=== PATIENT | female | born 1995 | race Caucasian/White ===

== ENCOUNTER 2018-05-18 00:23 | Emergency (ER) | payer OTHER ==
[2018-05-18 00:59] VITALS: BP 122/82; PULSE 82; TEMP 97.5; BMI 34.1
[2018-05-18 01:10] LABS: BASO % 0.2 % (0-2.0); EOS % 0.3 % (0-4.5); HEMATOCRIT 39.4 % (32.4-45.2); HEMOGLOBIN 13.6 GM/dL (10.7-15.3); LYMPH % 17.2 % (8-40); MCH 29.9 pg (25.7-33.7); MCHC 34.5 g/dl (32.0-36.0); MEAN CELL VOLUME 86.8 fl (80-96); MEAN PLT VOLUME 7.4 fl (7.5-11.1); MONO % 5.1 % (3.8-10.2); NEUT % 77.2 % (42.8-82.8); PLATELET COUNT 291 K/MM3 (134-434); RBC 4.54 M/mm3 (3.60-5.2); RDW 12.7 % (11.6-15.6); WHITE BLOOD COUNT 10.9 K/mm3 (4.0-10.0)
[2018-05-18] MEDS ORDERED: SODIUM CHLORIDE 1,000 ML IV STA (01:17)
[2018-05-18] MEDS ORDERED: METOCLOPRAMIDE HCL INJECTION 10 MG/2 ML VIAL IVPB ONE (01:18)
--- NOTE | 2018-05-18 01:21 | PDOC ---
History of Present Illness - General Chief Complaint: Headache Stated Complaint: HEADACHE Time Seen by Provider: 05/18/18 00:35 History Source: Patient Exam Limitations: No Limitations - History of Present Illness Initial Comments: 05/18/18 01:18 Best Contact: PCP: None Pmhx:0 Pshx: cyst to right side of neck @ age 2 Allergies:NKDA FH:0 Social Hx: Cigarettes/ 0 Alcohol/ social Drugs/0 LMP:Mar 2018/unk exact date 22-year-old female presents to the ER complaining of 8/10 dull global nonradiating intermittent headache with nausea and vomiting/photophobia, phonophobia 3 weeks without fever, chills, dizziness, lightheadedness, facial pains, earache, nasal congestion, sore throat, neck stiffness/pain, back pains, chest pain, shortness of breath, abdominal pains, flank pains, urinary symptoms , bladder or bowel dysfunction, [place] numbness or tingling sensation. Patient denies alleviating factors but the pain is exacerbated with loud noise and light. History of headaches 3 years ago when a heavy object hit her head. Past History - Past Medical History Allergies/Adverse Reactions: Allergies Allergy/AdvReac Type Severity Reaction Status Date / Time No Known Allergies Allergy Verified 05/18/18 00:42 Home Medications: Ambulatory Orders No Home Medications 0 dose .ROUTE UTDICT 08/14/12 GI Disorders: Yes (GERD) - Immunization History Immunization Up to Date: Yes - Suicide/Smoking/Psychosocial Hx Smoking Status: No Smoking History: Never smoked Have you smoked in the past 12 months: No Number of Cigarettes Smoked Daily: 0 Information on smoking cessation initiated: No Hx Alcohol Use: No Drug/Substance Use Hx: No Review of Systems - Review of Systems Able to Perform ROS?: Yes Comments:: 05/18/18 01:18 CONSTITUTIONAL: Absent: fever, chills, diaphoresis, generalized weakness, malaise, loss of appetite HEENT: Absent: rhinorrhea, nasal congestion, throat pain, throat swelling, difficulty swallowing, mouth swelling, ear pain, eye pain, visual Changes CARDIOVASCULAR: Absent: chest pain, loss of consciousness, palpitations, irregular heart rate, peripheral edema RESPIRATORY: Absent: cough, shortness of breath, dyspnea with exertion, orthopnea, wheezing, stridor, hemoptysis GASTROINTESTINAL: Absent: abdominal pain, abdominal distension, nausea, vomiting, diarrhea, constipation, melena, hematochezia GENITOURINARY: Absent: dysuria, frequency, urgency, hesitancy, hematuria, flank pain, genital pain MUSCULOSKELETAL: Absent: myalgia, arthralgia, joint swelling SKIN: Absent: rash, itching, pallor HEMATOLOGIC/IMMUNOLOGIC: Absent: easy bleeding, easy bruising, lymphadenopathy, frequent infections ENDOCRINE: Absent: unexplained weight gain, unexplained weight loss, heat intolerance, cold intolerance NEUROLOGIC: +global fox Absent: focal weakness or paresthesias, dizziness, unsteady gait, seizure, mental status changes, bladder or bowel incontinence PSYCHIATRIC: Absent: anxiety, depression, suicidal or homicidal ideation, hallucinations. Is the patient limited Kazakh proficient: No *Physical Exam - Vital Signs Last Vital Signs Temp Pulse Resp BP Pulse Ox 97.5 F L 82 18 122/82 98 05/18/18 00:38 05/18/18 00:38 05/18/18 00:38 05/18/18 00:38 05/18/18 00:38 - Physical Exam Comments: 05/18/18 01:18 GENERAL: Well developed, well nourished. Awake and alert. No acute distress. HEENT: Normocephalic, atraumatic. PERRLA, EOMI. No conjunctival pallor. Sclera are non- icteric. Moist mucous membranes. Oropharynx is clear. NECK: Supple. Full ROM. No JVD. Carotid pulses 2+ and symmetric, without bruits. No thyromegaly. No lymphadenopathy. CARDIOVASCULAR: Regular rate and rhythm. No murmurs, rubs, or gallops. Distal pulses are 2+ and symmetric. PULMONARY: No evidence of respiratory distress. Lungs clear to auscultation bilaterally. No wheezing, rales or rhonchi. ABDOMINAL: Soft. Non-tender. Non-distended. No rebound or guarding. No organomegaly. Normoactive bowel sounds. MUSCULOSKELETAL Normal range of motion at all joints. No bony deformities or tenderness. No CVA tenderness. EXTREMITIES: No cyanosis. No clubbing. No edema. No calf tenderness. SKIN: Warm and dry. Normal capillary refill. No rashes. No jaundice. NEUROLOGICAL: Alert, awake, appropriate. Cranial nerves 2-12 intact. No deficits to light touch and temperature in face, upper extremities and lower extremities. No motor deficits in the in face, upper extremities and lower extremities. Normoreflexic in the upper and lower extremities. Normal speech. Toes are down- going bilaterally. Gait is normal without ataxia. PSYCHIATRIC: Cooperative. Good eye contact. Appropriate mood and affect. Moderate Sedation - Procedure Monitoring Vital Signs: Procedure Monitoring Vital Signs Temperature 97.5 F L 05/18/18 00:38 Pulse Rate 82 05/18/18 00:38 Respiratory Rate 18 05/18/18 00:38 Blood Pressure 122/82 05/18/18 00:38 O2 Sat by Pulse Oximetry (%) 98 05/18/18 00:38 ED Treatment Course - LABORATORY CBC & Chemistry Diagram: 05/18/18 01:04 05/18/18 01:04 - RADIOLOGY Radiograph Interpretation: 05/18/18 03:22 Ct scan head: neg *DC/Admit/Observation/Transfer Diagnosis at time of Disposition: Headache Qualifiers: Headache type: other headache syndrome Qualified Code(s): G44.89 - Other headache syndrome - Discharge Dispostion Disposition: HOME Condition at time of disposition: Stable Decision to Admit order: No - Referrals Referrals: Keanu Becker MD [Staff Physician] - - Patient Instructions Printed Discharge Instructions: DI for Headache Additional Instructions: Take tylenol alternating with motrin every 6 hours as needed for pain Increase fluids Follow up with neurology this week Return to the Er for severe/persistent/worsening symptoms - Post Discharge Activity Forms/Work/School Notes: Back to Work
[2018-05-18] MEDS ORDERED: METOCLOPRAMIDE HCL INJECTION 10 MG/2 ML VIAL ONE (01:35)
[2018-05-18 01:38] LABS: ALBUMIN 4.1 g/dl (3.4-5.0); ALK PHOS 104 U/L (45-117); ANION GAP 7 MMOL/L (8-16); BILIRUBIN,TOTAL 0.6 mg/dL (0.2-1); BLOOD UREA NITROGEN 9 mg/dL (7-18); CALCIUM 8.8 mg/dL (8.5-10.1); CHLORIDE 102 mmol/L (98-107); CO2 31 mmol/L (21-32); CREATININE 0.8 mg/dL (0.55-1.3); GLUCOSE,RANDOM 101 mg/dL (74-106); POTASSIUM 3.8 mmol/L (3.5-5.1); SGOT/AST 21 U/L (15-37); SGPT/ALT 48 U/L (13-61); SODIUM 140 mmol/L (136-145); TOT PROT 7.9 g/dl (6.4-8.2)
== END 2018-05-18 04:25 | disposition home or self-care (01) ==
LOC: JER 00:23
PROC: 3E033GC Introduction of Other Therapeutic Substance into Peripheral Vein, Percutaneous Approach (ICD-10-PCS; principal; 2018-05-18)
PROC: 3E033GC Introduction of Other Therapeutic Substance into Peripheral Vein, Percutaneous Approach (ICD-10-PCS; 2018-05-18)
DX: G44.89 Other headache syndrome (principal)
CPT/HCPCS: 36415; 70450-TC; 80053; 84703; 85025; 99281-25; J7030

== ENCOUNTER 2018-05-28 18:18 | Emergency (ER) | payer OTHER ==
[2018-05-28 18:40] VITALS: TEMP 98.5; BMI 26.6
[2018-05-28] MEDS ORDERED: ONDANSETRON 4 MG/2 ML VIAL ONE (18:41)
--- NOTE | 2018-05-28 18:51 | PDOC ---
History of Present Illness - General History Source: Patient, Family Exam Limitations: No Limitations - History of Present Illness Initial Comments: 05/28/18 19:18 The patient is a 22 year old female, with a significant past medical history of GERD, who presents to the emergency department via ems with complaint of frontal headache. Pt is poor historian. Pt is non conversant at this time, however, when asked where her headache is she places her hands on her forehead. As per EMS, the patients brother called ems after finding the patient on the couch crying in pain at about 4PM today. The patients family at bedside report the patient was in good health last night and this morning. The family at bedside also states the patient was feeling happy because she had not had a headache in 2 days. The patient was reportedly seen in the ED 10 days ago for headache and had a negative head CT at that time. Family at bedside reportedly gave Excedrin today but is unsure if the patient took any additional medication. As per ems, BGM in route was 116. The patient denies chest pain, shortness of breath,and dizziness. The patient denies fever, chills, nausea, vomit, diarrhea and constipation. The patient denies dysuria, frequency, urgency and hematuria. <Melva Painter - Last Filed: 05/28/18 19:18> <Libertad Duncan - Last Filed: 05/29/18 01:31> - General Chief Complaint: Altered Mental Status Stated Complaint: ALTERED MENTAL STATUS Time Seen by Provider: 05/28/18 18:50 Past History <Melva Painter - Last Filed: 05/28/18 19:18> - Past Medical History COPD: No GI Disorders: Yes (GERD) - Immunization History Immunization Up to Date: Yes - Suicide/Smoking/Psychosocial Hx Smoking Status: No Smoking History: Unknown if ever smoked Have you smoked in the past 12 months: No Number of Cigarettes Smoked Daily: 0 Information on smoking cessation initiated: No Hx Alcohol Use: No Drug/Substance Use Hx: No <Libertad Duncan - Last Filed: 05/29/18 01:31> - Past Medical History Allergies/Adverse Reactions: Allergies Allergy/AdvReac Type Severity Reaction Status Date / Time No Known Allergies Allergy Verified 05/18/18 00:42 Home Medications: Ambulatory Orders No Home Medications 0 dose .ROUTE UTDICT 08/14/12 Ibuprofen [Motrin -] 800 mg PO TID PRN #21 tablet MDD 3 tabs 05/29/18 Methylprednisolone [Medrol Dose Thomas] 4 mg PO ASDIR #21 tablet 05/29/18 Metoclopramide HCl [Reglan -] 10 mg PO BID PRN #10 tablet MDD 2 tabs 05/29/18 Review of Systems - Review of Systems Able to Perform ROS?: Yes Comments:: 05/28/18 19:19 CONSTITUTIONAL: Absent: fever, chills, diaphoresis, generalized weakness, malaise, loss of appetite HEENT: Absent: rhinorrhea, nasal congestion, throat pain, throat swelling, difficulty swallowing, mouth swelling, ear pain, eye pain, visual Changes CARDIOVASCULAR: Absent: chest pain, syncope, palpitations, irregular heart rate, lightheadedness , peripheral edema RESPIRATORY: Absent: cough, shortness of breath, dyspnea with exertion, orthopnea, wheezing, stridor, hemoptysis GASTROINTESTINAL: Absent: abdominal pain, abdominal distension, nausea, vomiting, diarrhea, constipation, melena, hematochezia GENITOURINARY: Absent: dysuria, frequency, urgency, hesitancy, hematuria, flank pain, genital pain MUSCULOSKELETAL: Absent: myalgia, arthralgia, joint swelling SKIN: Absent: rash, itching, pallor HEMATOLOGIC/IMMUNOLOGIC: Absent: easy bleeding, easy bruising, lymphadenopathy, frequent infections ENDOCRINE: Absent: unexplained weight gain, unexplained weight loss, heat intolerance, cold intolerance NEUROLOGIC: (+) headache, Absent: focal weakness or paresthesias, dizziness, unsteady gait, seizure, mental status changes, bladder or bowel incontinence PSYCHIATRIC: Absent: anxiety, depression, suicidal or homicidal ideation, hallucinations. <Melva Painter - Last Filed: 05/28/18 19:18> *Physical Exam - Vital Signs Last Vital Signs Temp Pulse Resp BP Pulse Ox 98.5 F 51 L 16 119/63 100 05/28/18 18:37 05/28/18 18:37 05/28/18 18:37 05/28/18 18:37 05/28/18 18:37 - Physical Exam Comments: 05/28/18 19:20 GENERAL: (+) Softly moaning. Non Conversant. Intentionally keeping eyes closed. Well developed, well nourished. No acute distress. HEENT: Normocephalic, atraumatic. PERRLA, EOMI. No conjunctival pallor. Sclera are non- icteric. Moist mucous membranes. Oropharynx is clear. NECK: Supple. Full ROM. No JVD. Carotid pulses 2+ and symmetric, without bruits. No thyromegaly. No lymphadenopathy. CARDIOVASCULAR: Regular rate and rhythm. No murmurs, rubs, or gallops. Distal pulses are 2+ and symmetric. PULMONARY: No evidence of respiratory distress. Lungs clear to auscultation bilaterally. No wheezing, rales or rhonchi. ABDOMINAL: Soft. Non-tender. Non-distended. No rebound or guarding. No organomegaly. Normoactive bowel sounds. MUSCULOSKELETAL Normal range of motion at all joints. No bony deformities or tenderness. No CVA tenderness. EXTREMITIES: No cyanosis. No clubbing. No edema. No calf tenderness. SKIN: Warm and dry. Normal capillary refill. No rashes. No jaundice. NEUROLOGICAL: (+) non conversant. Intentionally keeping eyes closed tight. Cranial nerves 2- 12 intact. Normoreflexic in the upper and lower extremities. Toes are down- going bilaterally. Gait unassessed. PSYCHIATRIC: (+) non conversant. Intentionally keeping eyes closed tight. <Melva Painter - Last Filed: 05/28/18 19:18> - Vital Signs Last Vital Signs Temp Pulse Resp BP Pulse Ox 98.5 F 51 L 16 119/63 100 05/28/18 18:37 05/28/18 18:37 05/28/18 18:37 05/28/18 18:37 05/28/18 18:37 <Libertad Duncan - Last Filed: 05/29/18 01:31> Moderate Sedation - Procedure Monitoring Vital Signs: Procedure Monitoring Vital Signs Temperature 98.5 F 05/28/18 18:37 Pulse Rate 51 L 05/28/18 18:37 Respiratory Rate 16 05/28/18 18:37 Blood Pressure 119/63 05/28/18 18:37 O2 Sat by Pulse Oximetry (%) 100 05/28/18 18:37 <Melva Painter - Last Filed: 05/28/18 19:18> - Procedure Monitoring Vital Signs: Procedure Monitoring Vital Signs Temperature 98.5 F 05/28/18 18:37 Pulse Rate 51 L 05/28/18 18:37 Respiratory Rate 16 05/28/18 18:37 Blood Pressure 119/63 05/28/18 18:37 O2 Sat by Pulse Oximetry (%) 100 05/28/18 18:37 <Libertad Duncan - Last Filed: 05/29/18 01:31> ED Treatment Course - LABORATORY CBC & Chemistry Diagram: 05/28/18 20:50 05/28/18 20:50 <Libertad Duncan - Last Filed: 05/29/18 01:31> *DC/Admit/Observation/Transfer - Attestations Scribe Attestion: 05/28/18 19:20 Documentation prepared by Melva Painter, acting as medical information officer for Libertad Duncan MD <Melva Painter - Last Filed: 05/28/18 19:18> <Libertad Duncan - Last Filed: 05/29/18 01:31> Diagnosis at time of Disposition: Headache, chronic daily - Discharge Dispostion Disposition: HOME Condition at time of disposition: Stable - Prescriptions Prescriptions: Ibuprofen [Motrin -] 800 mg PO TID PRN #21 tablet MDD 3 tabs PRN Reason: Headache Methylprednisolone [Medrol Dose Thomas] 4 mg PO ASDIR #21 tablet Metoclopramide HCl [Reglan -] 10 mg PO BID PRN #10 tablet MDD 2 tabs PRN Reason: Headache - Referrals Referrals: Mimi Camarena MD [Primary Care Provider] - Mary Grace Calixto MD [Staff Physician] - - Patient Instructions Printed Discharge Instructions: DI for Migraine Additional Instructions: 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
[2018-05-28] MEDS ORDERED: METOCLOPRAMIDE HCL INJECTION 10 MG/2 ML VIAL IVPB STA (19:00)
[2018-05-28] MEDS ORDERED: METOCLOPRAMIDE HCL INJECTION 10 MG/2 ML VIAL ONE (20:34)
[2018-05-28 21:01] LABS: BASO % 0.2 % (0-2.0); EOS % 0.1 % (0-4.5); HEMATOCRIT 39.1 % (32.4-45.2); HEMOGLOBIN 13.4 GM/dL (10.7-15.3); LYMPH % 8.7 % (8-40); MCHC 34.3 g/dl (32.0-36.0); MEAN CELL VOLUME 87.5 fl (80-96); MEAN PLT VOLUME 8.3 fl (7.5-11.1); MONO % 3.8 % (3.8-10.2); NEUT % 87.2 % (42.8-82.8); PLATELET COUNT 307 K/MM3 (134-434); RBC 4.47 M/mm3 (3.60-5.2); RDW 12.8 % (11.6-15.6); WHITE BLOOD COUNT 12.2 K/mm3 (4.0-10.0)
[2018-05-28 21:32] LABS: ALBUMIN 3.8 g/dl (3.4-5.0); ALK PHOS 96 U/L (45-117); ANION GAP 8 MMOL/L (8-16); BILIRUBIN,TOTAL 0.6 mg/dL (0.2-1); BLOOD UREA NITROGEN 7 mg/dL (7-18); CALCIUM 8.5 mg/dL (8.5-10.1); CHLORIDE 104 mmol/L (98-107); CO2 27 mmol/L (21-32); CREATININE 0.7 mg/dL (0.55-1.3); GLUCOSE,RANDOM 114 mg/dL (74-106); POTASSIUM 4.4 mmol/L (3.5-5.1); SGOT/AST 34 U/L (15-37); SGPT/ALT 86 U/L (13-61); SODIUM 139 mmol/L (136-145); TOT PROT 7.3 g/dl (6.4-8.2)
[2018-05-28] MEDS ORDERED: KETOROLAC TROMETHAMINE 30 MG/1 ML VIAL IVPUSH ONE (22:15)
[2018-05-28] MEDS ORDERED: KETOROLAC TROMETHAMINE 30 MG/1 ML VIAL ONE (22:36)
[2018-05-28 22:45] VITALS: BP 103/54; PULSE 60
[2018-05-28] MEDS ORDERED: SODIUM CHLORIDE 1,000 ML IV STA (23:03)
[2018-05-29] MEDS ORDERED: DEXAMETHASONE SOD PHOSPHATE 20 MG/5 ML VIAL IVPB ONE (00:10)
[2018-05-29] MEDS ORDERED: DEXAMETHASONE SOD PHOSPHATE 10 MG/1 ML VIAL ONE (00:16)
[2018-05-29] MEDS ORDERED: DEXAMETHASONE SOD PHOSPHATE 4 MG/1 ML VIAL ONE (00:16)
[2018-05-29] MEDS ORDERED: MAGNESIUM SULF 50% (8.12 MEQ/2 ML-1 GM VIAL) IVPB ONE (00:20)
[2018-05-29] MEDS ORDERED: SODIUM CHLORIDE 1,000 ML IV STA (00:24)
[2018-05-29] MEDS ORDERED: MAGNESIUM 1GM/D5W - 1 GM/100 ML IVPB IVPB ONE (01:37)
== END 2018-05-29 02:14 | disposition home or self-care (01) ==
LOC: JER 18:18
PROC: 3E0333Z Introduction of Anti-inflammatory into Peripheral Vein, Percutaneous Approach (ICD-10-PCS; principal; 2018-05-28)
PROC: 3E0333Z Introduction of Anti-inflammatory into Peripheral Vein, Percutaneous Approach (ICD-10-PCS; 2018-05-28)
PROC: 3E033GC Introduction of Other Therapeutic Substance into Peripheral Vein, Percutaneous Approach (ICD-10-PCS; 2018-05-28)
PROC: 3E033GC Introduction of Other Therapeutic Substance into Peripheral Vein, Percutaneous Approach (ICD-10-PCS; 2018-05-28)
PROC: 3E033GC Introduction of Other Therapeutic Substance into Peripheral Vein, Percutaneous Approach (ICD-10-PCS; 2018-05-28)
PROC: 3E0337Z Introduction of Electrolytic and Water Balance Substance into Peripheral Vein, Percutaneous Approach (ICD-10-PCS; 2018-05-28)
PROC: 3E0337Z Introduction of Electrolytic and Water Balance Substance into Peripheral Vein, Percutaneous Approach (ICD-10-PCS; 2018-05-28)
DX: R51 Headache (principal)
CPT/HCPCS: 36415; 80053; 84703; 85025; 99282-25; J7030

== ENCOUNTER 2020-07-19 23:13 | Emergency (ER) | payer OTHER ==
[2020-07-19 23:43] VITALS: BP 123/86; PULSE 92; TEMP 98.9; BMI 36.6
[2020-07-20] MEDS ORDERED: LIDOCAINE VISCOUS 2% ORAL/TOP 20 ML UNIT-DOSE CUP MM ONE (04:03)
[2020-07-20] MEDS ORDERED: LIDOCAINE VISCOUS 2% ORAL/TOP 20 ML UNIT-DOSE CUP ONE (04:18)
== END 2020-07-20 04:23 | disposition home or self-care (01) ==
LOC: JER 23:13
DX: R09.89 Other specified symptoms and signs involving the circulatory and respiratory systems (principal)
CPT/HCPCS: 70360-TC-FY; 70490-TC; 99284-25

== ENCOUNTER 2021-09-01 10:20 | Emergency (ER) | payer OTHER ==
[2021-09-01 11:47] VITALS: BP 119/75; PULSE 64; TEMP 97.6; BMI 28.3
[2021-09-01] MEDS ORDERED: LIDOCAINE 5% TOPICAL PATCH TP ONE (11:50)
[2021-09-01] MEDS ORDERED: KETOROLAC TROMETHAMINE 30 MG/1 ML VIAL IM ONE (11:50)
[2021-09-01] MEDS ORDERED: METHOCARBAMOL 500 MG TABLET PO ONE (11:50)
[2021-09-01] MEDS ORDERED: METHOCARBAMOL 500 MG TABLET ONE (11:53)
[2021-09-01] MEDS ORDERED: LIDOCAINE 5% TOPICAL PATCH ONE (11:53)
[2021-09-01] MEDS ORDERED: KETOROLAC TROMETHAMINE 30 MG/1 ML VIAL ONE (12:01)
[2021-09-01] MEDS ORDERED: LIDOCAINE PATCH REMOVAL MC ONE (22:00)
== END 2021-09-01 13:04 | disposition home or self-care (01) ==
LOC: JERFT 10:20
PROC: 3E023GC Introduction of Other Therapeutic Substance into Muscle, Percutaneous Approach (ICD-10-PCS; principal; 2021-09-01)
DX: M54.50 Low back pain, unspecified (principal)
CPT/HCPCS: 71046-TC-FY; 99284-25